=== PATIENT | female | born 1950 | race Caucasian/White ===

== ENCOUNTER → 2020-08-07 | Outpatient (CLI) | payer MEDICARE ==
[~2020-08-07] MED LIST: FLOMAX0.4 MG PO; HYDROCODONE BIT1 T11 PO; MEDROL DOSEPAK4 MG PO; ZOFRAN ODT4 MG SL
== END | disposition home or self-care (01) ==
LOC: COVID19 12:17
PROVIDERS: ATTEND Family Medicine
DX: Z20.828 Contact with and (suspected) exposure to other viral communicable diseases (principal)

== ENCOUNTER → 2023-05-28 | Outpatient (CLI) | payer MEDICARE | END | disposition home or self-care (01) | LOC: US 00:34 | PROVIDERS: ATTEND Optometrist | DX: I65.23 Occlusion and stenosis of bilateral carotid arteries (principal) ==

== ENCOUNTER 2023-06-20 06:54 | Emergency (ER) | payer MEDICARE ==
[~2023-06-20] VITALS: Ht 170.1 cm; Wt 54.4 kg
[2023-06-20] MEDS ORDERED: Ondansetron4 MG PO (08:37)
== END 2023-06-20 08:47 | disposition home or self-care (01) ==
LOC: ED 06:54
DX: R11.0 Nausea (principal); J06.9 Acute upper respiratory infection, unspecified; G43.909 Migraine, unspecified, not intractable, without status migrainosus; Z88.8 Allergy status to other drugs, medicaments and biological substances; Z98.890 Other specified postprocedural states